=== PATIENT | female | born 1960 | race Two or more races ===

== ENCOUNTER 2019-09-22 11:26 | Emergency (ER) | payer OTHER ==
[~2019-09-22] VITALS: Ht 162.6 cm; Wt 90.7 kg
[~2019-09-22 11:26] MED LIST: BENADRYL50 MG PO; ENALAPRIL MALEA10 MG; HYDROCHLOROTHIA25 MG; PRILOSEC40 MG
== END 2019-09-22 14:04 | disposition home or self-care (01) ==
LOC: ER 11:26
DX: B34.9 Viral infection, unspecified (principal); Z03.818 Encounter for observation for suspected exposure to other biological agents ruled out; R07.0 Pain in throat; R50.9 Fever, unspecified

== ENCOUNTER 2020-01-13 21:37 | Emergency (ER) | payer OTHER ==
[~2020-01-13] VITALS: Ht 162.6 cm; Wt 86.2 kg
[2020-01-13] MEDS ORDERED: AMLODIPINE (22:16)
[2020-01-14] MEDS ORDERED: VITAMIN C WIT1000 MG PO (04:12)
[2020-01-14] MEDS ORDERED: ACETAMINOPHEN650 M2 PO (04:12)
[2020-01-14] MEDS ORDERED: [UNRECOGNIZED DRUG - OTHER] PO (04:15)
== END 2020-01-14 04:20 | disposition home or self-care (01) ==
LOC: ER 21:37
DX: B34.9 Viral infection, unspecified (principal); Z03.818 Encounter for observation for suspected exposure to other biological agents ruled out

== ENCOUNTER 2020-09-10 09:50 | Emergency (ER) | payer OTHER ==
[~2020-09-10] VITALS: Ht 162.6 cm; Wt 90.7 kg
[~2020-09-10 09:50] MED LIST changes: +ACETAMINOPHEN650 M2 PO; +AMLODIPINE; +VITAMIN C WIT1000 MG PO; +[UNRECOGNIZED DRUG - OTHER] PO
[2020-09-10] MEDS ORDERED: COZAAR25 MG PO (10:06)
[2020-09-10] MEDS ORDERED: HYDROCHLOROTH12.5 MG PO (10:06)
[2020-09-10] MEDS ORDERED: CIPRO500 MG PO (14:40)
== END 2020-09-10 16:18 | disposition home or self-care (01) ==
LOC: ER 09:50
DX: B34.9 Viral infection, unspecified (principal); Z11.52 Encounter for screening for COVID-19

== ENCOUNTER 2020-11-21 23:01 | Emergency (ER) | payer OTHER ==
[~2020-11-21] VITALS: Ht 162.6 cm; Wt 91.2 kg
[~2020-11-21 23:01] MED LIST changes: +CIPRO500 MG PO; +COZAAR25 MG PO; +HYDROCHLOROTH12.5 MG PO
[2020-11-22] MEDS ORDERED: ZYNCOF 20-400120 ML PO (04:06)
[2020-11-22] MEDS ORDERED: ZITHROMAX500 MG PO (04:06)
== END 2020-11-22 04:28 ==
LOC: ER 23:01
DX: B34.9 Viral infection, unspecified (principal); R50.9 Fever, unspecified; Z03.818 Encounter for observation for suspected exposure to other biological agents ruled out

== ENCOUNTER 2021-05-01 23:12 | Emergency (ER) | payer OTHER ==
[~2021-05-01] VITALS: Ht 165.1 cm; Wt 93.4 kg
[~2021-05-01 23:12] MED LIST changes: +ZITHROMAX500 MG PO; +ZYNCOF 20-400120 ML PO
[2021-05-01] MEDS ORDERED: NORVASC10 MG PO (23:30)
[2021-05-02] MEDS ORDERED: ZOFRAN4 MG PO (06:16)
[2021-05-02] MEDS ORDERED: PEPCID40 MG PO (06:16)
== END 2021-05-02 06:26 ==
LOC: ER 23:12
DX: K21.9 Gastro-esophageal reflux disease without esophagitis (principal); I10 Essential (primary) hypertension

== ENCOUNTER 2021-12-15 18:27 | Emergency (ER) | payer OTHER ==
[~2021-12-15] VITALS: Ht 172.7 cm; Wt 106.6 kg
[~2021-12-15 18:27] MED LIST changes: +DICLOFENAC SOD100 MG PO; +NORVASC10 MG PO; +PEPCID40 MG PO; +ZOFRAN4 MG PO
== END 2021-12-15 21:32 | disposition left against medical advice (07) ==
LOC: ER 18:27
DX: R53.81 Other malaise (principal); Z88.0 Allergy status to penicillin; Z88.1 Allergy status to other antibiotic agents; I10 Essential (primary) hypertension; Z20.822 Contact with and (suspected) exposure to COVID-19

== ENCOUNTER 2021-12-16 16:05 | Inpatient (IN) | payer OTHER ==
[~2021-12-16] VITALS: Ht 152.4 cm; Wt 113.4 kg
== END 2021-12-20 19:16 | disposition home or self-care (01) | DRG 690 ==
LOC: ER 16:05 → MEDJ 21:08
PROVIDERS: ADMIT Internal Medicine; ATTEND Internal Medicine
PROC: BW21ZZZ Computerized Tomography (CT Scan) of Abdomen and Pelvis (ICD-10-PCS; principal; 2021-12-16)
DX: N39.0 Urinary tract infection, site not specified (principal); E86.0 Dehydration; I10 Essential (primary) hypertension; R63.0 Anorexia; Z88.0 Allergy status to penicillin; R30.0 Dysuria; Z20.822 Contact with and (suspected) exposure to COVID-19

== ENCOUNTER → 2022-02-01 | Emergency (ER) | payer OTHER ==
[~2022-02-01] VITALS: Ht 162.6 cm; Wt 90.7 kg
[~2022-02-01] MED LIST changes: +ANTIVERT25 M2; +DRAMAMINE LESS25 MG PO
== END | disposition home or self-care (01) ==
LOC: ER 21:40
DX: R42 Dizziness and giddiness (principal)

== ENCOUNTER 2024-09-22 22:46 | Emergency (ER) | payer OTHER ==
[~2024-09-22] VITALS: Ht 165.1 cm; Wt 90.7 kg
[~2024-09-22 22:46] MED LIST changes: +ACID REDUCER20 MG PO; +AMLODIPINE-OLM1 EAC1 PO; +MECLIZINE HCL25 MG PO; +[UNRECOGNIZED DRUG - OTHER] PO
[2024-09-22 23:17] VITALS: BP 119/71; O2SAT 96
[2024-09-23] MEDS ORDERED: KETOROLAC TROMETHAMINE 60 MG VIAL IM STA (02:44)
[2024-09-23] MEDS ORDERED: TETRACAINE HCL 20 DR/ML DROPS OP STA (02:45)
[2024-09-23] MEDS ORDERED: CLINDAMYCIN PHOSPHATE 150 MG/ML (600mg) IM STA (02:45)
== END 2024-09-23 03:16 | disposition home or self-care (01) ==
LOC: ER 22:57
DX: H10.89 Other conjunctivitis (principal); Z88.0 Allergy status to penicillin; Z88.8 Allergy status to other drugs, medicaments and biological substances

== ENCOUNTER 2024-12-29 12:24 | Emergency (ER) | payer OTHER ==
[~2024-12-29] VITALS: Ht 170.2 cm; Wt 90.7 kg
[2024-12-29] MEDS ORDERED: ZESTRIL20 MG PO (12:44)
[2024-12-29] MEDS ORDERED: GLIMEPIRIDE4 M1 PO (12:45)
[2024-12-29] MEDS ORDERED: KETOROLAC TROMETHAMINE 30 MG VIAL IU ONE (13:15)
[2024-12-29] MEDS ORDERED: 0.9 % SODIUM CHLORIDE 1,000 ML IV ONE (13:30)
[2024-12-29] MEDS ORDERED: KETOROLAC TROMETHAMINE 30 MG VIAL ONE (14:04)
[2024-12-29 14:30] LABS: BASO % 0.6 % (0.1-1.2); EOS # 0.08 (0.04-0.54); EOS % 1.7 % (0.7-7.0); LYMPH # 2.36 (1.18-3.74); LYMPH % 49.1 % (19.3-53.1); MEAN PLATELET VOLUME 11.20 fl (9.4-12.4); MONO # 0.37 (0.24-0.82); MONO % 7.7 % (4.7-12.5); NEUT # 1.97 (1.56-6.13); NEUT % 40.9 % (34.0-71.1); RED CELL DISTRIBUTION WIDTH 15.9 % (11.6-14.4)
[2024-12-29 14:53] LABS: ALT/SGPT 39.0 U/L (12-78); AST/SGOT 25.0 U/L (15-37); BILIRUBIN TOTAL 0.46 mg/dL (0.3-1.2); BILIRUBIN,CONJUGATED 0.11 mg/dL (0.0-0.2); BUN CREA RATIO 18.0 (7.0-25.0); CREATININE SERUM 0.65 mg/dL (0.55-1.02); GFR 92.36; GLUCOSE FASTING 82.0 mg/dL (65-100); OSMOLALITY SERUM 282.0 MOSM/KG (275-295)
== END 2024-12-29 15:52 | disposition home or self-care (01) ==
LOC: ER 12:25
PROVIDERS: Emergency Medicine
DX: R10.32 Left lower quadrant pain (principal); Z88.0 Allergy status to penicillin; Z88.8 Allergy status to other drugs, medicaments and biological substances